=== PATIENT | male | born 1945 | race Native Hawaiian/Other Pacific Islander ===

== ENCOUNTER 2017-11-28 05:41 | Outpatient (CLI) | payer OTHER ==
[~2017-11-28 05:41] MED LIST: PRAVASTATIN10 MG PO
[2017-11-28 06:26] LABS: PLATELET COUNT 182 K/uL (142-355)
[2017-11-28 06:32] LABS: POTASSIUM 3.8 mmol/L (3.6-5.2)
== END 2017-11-28 19:18 | disposition home or self-care (01) ==
LOC: LABW 05:41
PROVIDERS: Dermatology Procedural Dermatology
DX: R76.12 Nonspecific reaction to cell mediated immunity measurement of gamma interferon antigen response without active tuberculosis (principal); Z82.69 Family history of other diseases of the musculoskeletal system and connective tissue; Z79.899 Other long term (current) drug therapy; Z51.81 Encounter for therapeutic drug level monitoring
CPT/HCPCS: 36415; 80053; 80074; 85027; 86480

== ENCOUNTER 2018-09-18 13:54 | Outpatient (CLI) | payer OTHER ==
[2018-09-18 14:25] LABS: PLATELET COUNT 181 K/uL (142-355)
[2018-09-18 14:33] LABS: POTASSIUM 3.7 mmol/L (3.6-5.2)
== END 2018-09-18 20:15 | disposition home or self-care (01) ==
LOC: EDBD 13:54 → LABW 13:54
PROVIDERS: Dermatology
DX: R53.82 Chronic fatigue, unspecified (principal); Z79.899 Other long term (current) drug therapy
CPT/HCPCS: 36415; 80053; 80074; 85027; 86480

== ENCOUNTER 2023-04-19 10:17 | Outpatient (CLI) | payer OTHER | END 2023-04-19 19:20 | disposition home or self-care (01) | LOC: CT 10:17 → US 10:17 → CT 19:20 | PROVIDERS: ATTEND Internal Medicine | DX: S09.8XXA Other specified injuries of head, initial encounter (principal); R42 Dizziness and giddiness; R11.0 Nausea; Y92.89 Other specified places as the place of occurrence of the external cause; R10.9 Unspecified abdominal pain; R07.89 Other chest pain | CPT/HCPCS: 93005 ==

== ENCOUNTER 2023-04-22 12:12 | Outpatient (CLI) | payer OTHER | END 2023-04-22 20:06 | disposition home or self-care (01) | LOC: CT 12:12 | PROVIDERS: ATTEND Internal Medicine | DX: R10.11 Right upper quadrant pain (principal); R50.9 Fever, unspecified | CPT/HCPCS: 36415; 82565; 84520; Q9963 ==

== ENCOUNTER 2023-05-23 08:05 | Outpatient (CLI) | payer OTHER | END 2023-05-23 19:17 | disposition home or self-care (01) | LOC: CT 08:05 | PROVIDERS: ATTEND Internal Medicine Gastroenterology | DX: R93.3 Abnormal findings on diagnostic imaging of other parts of digestive tract (principal); R10.9 Unspecified abdominal pain | CPT/HCPCS: Q9963 ==

== ENCOUNTER 2023-12-10 07:54 | Outpatient (CLI) | payer OTHER | END 2023-12-10 19:26 | disposition home or self-care (01) | LOC: US 07:54 → EDBD 08:00 → US 08:00 | PROVIDERS: ATTEND Internal Medicine | DX: R11.0 Nausea (principal); R10.9 Unspecified abdominal pain ==